=== PATIENT | female | born 1985 | race Caucasian/White ===

== ENCOUNTER 2018-05-01 18:21 | Outpatient (CLI) | payer MEDICAID ==
[2018-05-01 20:13] LABS: ADD MAN DIFF? NO
[2018-05-01 20:16] LABS: WHITE BLOOD COUNT 14.4 10^3/ul (4.8-10.8)
[2018-05-01 20:16] LABS: ABNORMAL IP MESSAGE 1; ADD UMIC YES; BASOPHIL # 0.1 10^3/ul (0.0-0.1); BASOPHILS % 0.3 % (0.0-2.0); EOSINOPHILS # 0.5 10^3/ul (0.0-0.5); EOSINOPHILS % 3.2 % (0.0-7.0); HEMATOCRIT 32.1 % (37.0-47.0); HEMOGLOBIN 9.9 g/dl (12.0-16.0); LYMPHOCYTES # 2.6 10^3/ul (0.8-2.9); LYMPHOCYTES % 18.1 % (15.0-51.0); MEAN CORPUSCULAR HEMOGLOBIN 19.7 pg (29.0-33.0); MEAN CORPUSCULAR HGB CONC 30.8 g/dl (32.0-37.0); MEAN CORPUSCULAR VOLUME 63.9 fl (82.0-101.0); MONOCYTE # 1.1 10^3/ul (0.3-0.9); MONOCYTES % 7.3 % (0.0-11.0); NEUTROPHILS % 69.3 % (39.0-77.0); NUCLEATED RED BLOOD CELLS # 0.1 10^3/ul (0.0-0.0); NUCLEATED RED BLOOD CELLS% 0.4 /100WBC (0.0-0.0); PLATELET COUNT 201 10^3/UL (140-415); RED BLOOD COUNT 5.02 10^6/ul (4.20-5.40); RED CELL DISTRIBUTION WIDTH 18.2 % (11.5-14.5); UR ASCORBIC ACID NEGATIVE (NEGATIVE); UR BACTERIA FEW /HPF (NONE SEEN); UR BILIRUBIN (Dip) NEGATIVE (NEGATIVE); UR BLOOD (Dip) NEGATIVE (NEGATIVE); UR CLARITY CLOUDY (CLEAR); UR COLOR YELLOW (YELLOW); UR GLUCOSE (Dip) NEGATIVE (NEGATIVE); UR KETONES (Dip) NEGATIVE (NEGATIVE); UR LEUKOCYTE ESTERASE (Dip) TRACE Leu/ul (NEGATIVE); UR MUCUS FEW /HPF (NONE SEEN); UR NITRITE (Dip) NEGATIVE (NEGATIVE); UR RBC 0 /HPF (0-5); UR SPECIFIC GRAVITY (Dip) 1.013 (1.003-1.030); UR TOTAL PROTEIN (Dip) NEGATIVE (NEGATIVE); UR UROBILINOGEN (Dip) NEGATIVE (NEGATIVE); UR WBC 12 /HPF (0-5)
[2018-05-01 20:25] LABS: POSITIVE DIFF @See below
== END 2018-05-02 00:25 | disposition home or self-care (01) ==
LOC: OBT 18:21 → L-D 18:23
DX: O26.892 Other specified pregnancy related conditions, second trimester (principal); R10.2 Pelvic and perineal pain; Z3A.26 26 weeks gestation of pregnancy
CPT/HCPCS: 76817; 81001; 85025; 87086

== ENCOUNTER 2018-06-18 11:26 | Outpatient (CLI) | payer MEDICAID | END 2018-06-18 13:20 | disposition home or self-care (01) | LOC: OBT 11:26 → L-D 11:26 → OBT 13:20 | DX: O26.893 Other specified pregnancy related conditions, third trimester (principal); Z3A.33 33 weeks gestation of pregnancy; R10.9 Unspecified abdominal pain | CPT/HCPCS: 76817; 76818 ==

== ENCOUNTER 2018-07-27 15:11 | Inpatient (IN) | payer MEDICAID ==
[2018-07-27] MEDS ORDERED: OXYTOCIN 30 UNITS/LR 500 ML IV (19:30)
[2018-07-27] MEDS ORDERED: LIDOCAINE 1% (MPF) 30 ML INJ INJ (19:30)
[2018-07-27] MEDS ORDERED: BUTORPHANOL 2 MG INJ IV (19:30)
[2018-07-27] MEDS ORDERED: MISOPROSTOL 200 MCG TAB PR (19:30)
[2018-07-27] MEDS ORDERED: CARBOPROST 250 MCG INJ IM (19:30)
[2018-07-27] MEDS ORDERED: BUTORPHANOL 1 MG INJ IV (19:30)
[2018-07-27] MEDS ORDERED: METHYLERGONOVINE 0.2 MG INJ IM (19:30)
[2018-07-27] MEDS ORDERED: IBUPROFEN 600 MG TAB PO (19:30)
[2018-07-27] MEDS: LACTATED RINGER'S 1,000 ML IV (20:35)
[2018-07-27 20:40] LABS: ADD MAN DIFF? NO
[2018-07-27 20:42] LABS: WHITE BLOOD COUNT 11.2 10^3/ul (4.8-10.8)
[2018-07-27 20:42] LABS: ABNORMAL IP MESSAGE 1; BASOPHIL # 0.1 10^3/ul (0.0-0.1); BASOPHILS % 0.4 % (0.0-2.0); EOSINOPHILS # 0.1 10^3/ul (0.0-0.5); EOSINOPHILS % 0.6 % (0.0-7.0); HEMATOCRIT 36.6 % (37.0-47.0); HEMOGLOBIN 11.3 g/dl (12.0-16.0); LYMPHOCYTES # 2.7 10^3/ul (0.8-2.9); MEAN CORPUSCULAR HEMOGLOBIN 18.9 pg (29.0-33.0); MEAN CORPUSCULAR HGB CONC 30.9 g/dl (32.0-37.0); MEAN CORPUSCULAR VOLUME 61.1 fl (82.0-101.0); MONOCYTE # 0.6 10^3/ul (0.3-0.9); MONOCYTES % 5.6 % (0.0-11.0); NEUTROPHIL # 7.7 10^3/ul (1.6-7.5); NEUTROPHILS % 68.8 % (39.0-77.0); PLATELET COUNT 176 10^3/UL (140-415); RED BLOOD COUNT 5.99 10^6/ul (4.20-5.40); RED CELL DISTRIBUTION WIDTH 15.6 % (11.5-14.5)
[2018-07-27 20:52] LABS: POSITIVE DIFF @See below
[2018-07-27 21:02] LABS: INR 0.91; PROTIME 12.3 Sec (11.9-14.9)
[2018-07-27 21:03] LABS: PARTIAL THROMBOPLASTIN TIME 26.9 Sec (23.0-35.0)
[2018-07-27 21:55] LABS: ALANINE AMINOTRANSFERASE 12 IU/L (13-69); ALBUMIN 3.7 g/dl (3.3-4.9); ALBUMIN/GLOBULIN RATIO 1.19; ALKALINE PHOSPHATASE 238 IU/L (42-121); ANION GAP 8 (5-13); ASPARTATE AMINO TRANSFERASE 25 IU/L (15-46); BILIRUBIN,INDIRECT 0.3 mg/dl (0-1.1); BILIRUBIN,TOTAL 0.3 mg/dl (0.2-1.3); BLOOD UREA NITROGEN 8 mg/dl (7-20); CALCIUM 9.5 mg/dl (8.4-10.2); CARBON DIOXIDE 22 mmol/L (21-31); CHLORIDE 109 mmol/L (97-110); CREATININE 0.43 mg/dl (0.44-1.00); Estimated GFR > 60 mL/min (>60); GLUCOSE 85 mg/dl (70-220); SODIUM 139 mmol/L (135-144); TOTAL PROTEIN 6.8 g/dl (6.1-8.1)
[2018-07-27] MEDS: OXYTOCIN 30 UNITS/LR 500 ML IV (22:48)
[2018-07-28 02:58] LABS: ADD UMIC YES; UR ASCORBIC ACID NEGATIVE (NEGATIVE); UR BACTERIA FEW /HPF (NONE SEEN); UR BILIRUBIN (Dip) NEGATIVE (NEGATIVE); UR BLOOD (Dip) NEGATIVE (NEGATIVE); UR CLARITY CLEAR (CLEAR); UR COLOR YELLOW (YELLOW); UR GLUCOSE (Dip) NEGATIVE (NEGATIVE); UR KETONES (Dip) NEGATIVE (NEGATIVE); UR LEUKOCYTE ESTERASE (Dip) TRACE Leu/ul (NEGATIVE); UR NITRITE (Dip) NEGATIVE (NEGATIVE); UR RBC 3 /HPF (0-5); UR SPECIFIC GRAVITY (Dip) 1.017 (1.003-1.030); UR SQUAMOUS EPITHELIAL CELL FEW /HPF (FEW); UR TOTAL PROTEIN (Dip) NEGATIVE (NEGATIVE); UR UROBILINOGEN (Dip) NEGATIVE (NEGATIVE); UR WBC 3 /HPF (0-5)
[2018-07-28] MEDS: LACTATED RINGER'S 1,000 ML IV ×3 (03:51→18:09)
[2018-07-28] MEDS: MISOPROSTOL 50 MCG CAPSULE PO ×2 (18:27→23:10)
[2018-07-28 20:49] LABS: RAPID PLASMA REAGIN NONREACTIVE (NR)
[2018-07-29] MEDS: LACTATED RINGER'S 1,000 ML IV ×5 (01:07→23:05)
[2018-07-29] MEDS: MISOPROSTOL 50 MCG CAPSULE PO (03:27)
[2018-07-29] MEDS: OXYTOCIN 30 UNITS/LR 500 ML IV (09:44)
[2018-07-29] MEDS ORDERED: FENTAnyl 2MCG/ML-ROPIV 0.2% 100 ML (12:20)
[2018-07-29] MEDS ORDERED: NALOXONE (0.4 MG/ML) INJ IV (12:30)
[2018-07-29] MEDS: FENTAnyl 2MCG/ML-ROPIV 0.2% 100 ML BAG EPI (20:23)
[2018-07-30] MEDS: FENTAnyl 2MCG/ML-ROPIV 0.2% 100 ML BAG EPI (04:53)
[2018-07-30] MEDS: LACTATED RINGER'S 1,000 ML IV ×2 (07:41→19:03)
[2018-07-30] MEDS: OXYTOCIN 30 UNITS/LR 500 ML IV ×2 (11:00→11:06)
[2018-07-30] MEDS ORDERED: OXYTOCIN 30 UNITS/LR 500 ML IV ×2 (11:35→12:00)
[2018-07-30] MEDS ORDERED: ACETAMINOPHEN 325 MG TAB PO (12:00)
[2018-07-30] MEDS ORDERED: CARBOPROST 250 MCG INJ IM (12:00)
[2018-07-30] MEDS ORDERED: DIBUCAINE 1% 30 GM OINT TOP (12:00)
[2018-07-30] MEDS ORDERED: OXYCODONE/ASPIRIN (4.88/325) TAB PO ×2 (12:00)
[2018-07-30] MEDS: IBUPROFEN 600 MG TAB PO ×3 (12:00→23:38)
[2018-07-30] MEDS ORDERED: NACL 0.9% 3 ML SYG IV (12:00)
[2018-07-30] MEDS ORDERED: METHYLERGONOVINE 0.2 MG INJ IM (12:00)
[2018-07-30] MEDS ORDERED: MISOPROSTOL 200 MCG TAB PR (12:00)
[2018-07-30] MEDS: LANOLIN 7 GM TUBE TOP (14:16)
[2018-07-30] MEDS: BENZOCAINE 20% 56 ML SPRAY TOP (14:17)
[2018-07-30] MEDS: WITCH HAZEL/GLYCERIN PAD PR (14:17)
[2018-07-30] MEDS: HYDROCODONE/APAP (5/325) TAB PO (14:17)
[2018-07-30] MEDS: LACTATED RINGER'S 1,000 ML IV* ×2 (16:00→19:35)
[2018-07-30] MEDS: SENNA/DOCUSATE NA (8.6MG/50MG) TAB PO (21:27)
[2018-07-31] MEDS: HYDROCODONE/APAP (5/325) TAB PO ×2 (02:17→07:07)
[2018-07-31] MEDS: LACTATED RINGER'S 1,000 ML IV ×3 (03:03→19:03)
[2018-07-31] MEDS: LACTATED RINGER'S 1,000 ML IV* ×3 (03:35→19:35)
[2018-07-31] MEDS: IBUPROFEN 600 MG TAB PO ×3 (06:00→18:08)
[2018-07-31 08:09] LABS: ADD MAN DIFF? NO
[2018-07-31 08:12] LABS: WHITE BLOOD COUNT 12.6 10^3/ul (4.8-10.8)
[2018-07-31 08:12] LABS: ABNORMAL IP MESSAGE 1; BASOPHIL # 0.1 10^3/ul (0.0-0.1); BASOPHILS % 0.4 % (0.0-2.0); EOSINOPHILS # 0.1 10^3/ul (0.0-0.5); HEMATOCRIT 33.4 % (37.0-47.0); HEMOGLOBIN 10.2 g/dl (12.0-16.0); LYMPHOCYTES # 2.8 10^3/ul (0.8-2.9); LYMPHOCYTES % 22.2 % (15.0-51.0); MEAN CORPUSCULAR HEMOGLOBIN 18.7 pg (29.0-33.0); MEAN CORPUSCULAR HGB CONC 30.5 g/dl (32.0-37.0); MEAN CORPUSCULAR VOLUME 61.2 fl (82.0-101.0); MONOCYTE # 0.7 10^3/ul (0.3-0.9); MONOCYTES % 5.3 % (0.0-11.0); NEUTROPHIL # 8.9 10^3/ul (1.6-7.5); NEUTROPHILS % 70.6 % (39.0-77.0); PLATELET COUNT 165 10^3/UL (140-415); RED BLOOD COUNT 5.46 10^6/ul (4.20-5.40); RED CELL DISTRIBUTION WIDTH 15.6 % (11.5-14.5)
[2018-07-31 08:15] LABS: POSITIVE DIFF @See below
[2018-07-31] MEDS: SENNA/DOCUSATE NA (8.6MG/50MG) TAB PO ×2 (09:40→21:33)
[2018-08-01] MEDS: IBUPROFEN 600 MG TAB PO ×3 (00:13→11:31)
[2018-08-01] MEDS: LACTATED RINGER'S 1,000 ML IV (03:03)
[2018-08-01] MEDS: LACTATED RINGER'S 1,000 ML IV* (03:35)
[2018-08-01] MEDS: DIPHTH/TET/ACEL PERTUSS (ADULT) 0.5 ML VIAL IM* (09:00)
[2018-08-01] MEDS: SENNA/DOCUSATE NA (8.6MG/50MG) TAB PO (11:31)
== END 2018-08-01 17:44 | disposition home or self-care (01) | DRG 807 ==
LOC: OBT 15:11 → PP1 07-30 12:27 → L-D 15:12 → OBT 18:51 → L-D 18:45
PROC: 10E0XZZ Delivery of Products of Conception, External Approach (ICD-10-PCS; principal; 2018-07-30)
PROC: 0KQM0ZZ Repair Perineum Muscle, Open Approach (ICD-10-PCS; 2018-07-30)
DX: O70.1 Second degree perineal laceration during delivery (principal); Z37.0 Single live birth; Z3A.39 39 weeks gestation of pregnancy
CPT/HCPCS: 62319; 76705; 76815; 76818; 80053; 81001; 85025; 85610; 85730; 86592; 86850; 86900; 86901